=== PATIENT | female | born 1975 | race Caucasian/White ===

== ENCOUNTER 2021-06-06 08:45 | Outpatient (CLI) | payer BC, SELFPAY ==
--- NOTE | 2021-06-06 | DI.RAD_ITS ---
Exam(s) XR CERVICAL SPINE COMP 4-5V EXAM: XR CERVICAL SPINE COMP 4-5V CLINICAL HISTORY: NECK PAIN WITH BL BRACHIAL PARESTHESIA X 2 MOS. TECHNIQUE: 2D digital imaging was performed. COMPARISON: No exams were available for comparison FINDINGS: BONES: No fracture or destructive lesion. Vertebral bodies are unremarkable. Facet degenerative foster ges greatest at C2-3, C6-7 and C7-T1. Mild left-sided neural foraminal narrowing at C5-6. Remaining neural foramen are patent.. DISKS: Mild disc space narrowing at C5-6 with small endplate osteophytes. Minimal endplate osteophyt es at C4-5. ALIGNMENT: Cervical spinal alignment is within normal limits. The odontoid and atlantoaxial articulat ions are normal. SOFT TISSUE: Normal. The lung apices are clear. IMPRESSION: Mild degenerative disc changes and facet degenerative changes. DATA REPOSITORY: RADIATION DOSE DELIVERED:
== END 2021-06-06 09:05 ==
PROVIDERS: PCP Nurse Practitioner; Visit Provider Chiropractor Orthopedic
DX: M47.812 Spondylosis without myelopathy or radiculopathy, cervical region (principal); R20.2 Paresthesia of skin
CPT/HCPCS: 72050

== ENCOUNTER 2021-08-28 01:44 | Outpatient (CLI) | payer BC, SELFPAY ==
--- NOTE | 2021-08-28 | DI.RAD_ITS ---
Exam(s) XR CHEST 2V PA LATERAL EXAM: XR CHEST 2V PA LATERAL CLINICAL HISTORY: PLEURITIC CHEST PAIN, R07.1,VIRAL INFECTION,B34.9 TECHNIQUE: 2D digital imaging was performed. COMPARISON: No exams were available for comparison FINDINGS: The heart is not enlarged. The lungs are clear and well expanded. No pleural effusion seen. Mediastin al contours appear intact. IMPRESSION: Normal chest. RADIATION DOSE DELIVERED: Total DLP
== END 2021-08-28 02:04 ==
PROVIDERS: PCP Nurse Practitioner; Visit Provider Family Medicine
DX: R07.1 Chest pain on breathing (principal); B34.9 Viral infection, unspecified
CPT/HCPCS: 71046

== ENCOUNTER 2021-09-06 09:08 | Emergency (ER) | payer BC, SELFPAY ==
--- NOTE | 2021-09-06 09:00 | RT.EKG_ITS ---
APPROVED REPORT Exam: Resting ECG Reason for Exam: sob Patient Location: E HR:89 bpm ECG Measurements Heart Rate 89 AXIS KS 126 P 64 QRSd 74 QRS 46 QT 346 T 37 QTc 421 Conclusion Sinus rhythm...normal P axis, V-rate 60- 99. Sinus. No STEMI. I have reviewed and interpreted ECG and agree with software generated interpretation.
[2021-09-06 09:13] VITALS: BP 142/105; PULSE 102; RESP 24; TEMP 36.6; O2SAT 100
--- NOTE | 2021-09-06 09:20 | ED.GENADUL_ITS ---
Discharge Plan Disposition Patient Disposition: AGAINST MEDICAL ADVICE Condition: Stable Discharge Details Clinical Impression: Shortness of breath Primary Care Provider: Shanique Westfall ED Provider: Belkys Bailey Home Meds and New Rx's Prescriptions: Continued bupropion HCl 75 MG tablet 75 mg PO BID RF: 0 diclofenac 50 mg PO BID RF: 0 ParaGard T 380A 1 EACH intrauterine device 1 ea Intrauterine ONCE Qty: 1 RF: 0 gabapentin 300 MG capsule 300 mg PO as directed 30 Days Qty: 102 RF: 0 prednisone 10 mg tablet 50 mg PO DAILY RF: 0 citalopram 20 mg tablet 20 mg PO DAILY RF: 0 benzonatate 100 mg capsule 100 mg PO PRN PRNRF: 0 albuterol sulfate 90 mcg/actuation HFA aerosol inhaler 2 inh INHALATION PRN PRNRF: 0 lamotrigine 100 mg tablet 50 mg PO QHS RF: 0 methylphenidate HCl 20 mg capsule, ER biphasic 30-70 20 mg PO DAILY RF: 0 Discharge Data Discharge Date/Time-TO BE ENTERED AT DEPARTURE: 09/06/21 10:15 Medical Decision Making Patient is a 46-year-old female presenting today with chief complaint of chest pain and shortness of breath. States that this began approximately 1 month ago but has had a great increase in the past 30 minutes. Has been having a chronic cough, is currently on steroids. States that she has been coughing frequently for the past month and has been seen by her primary care for this. States that when her symptoms began this morning, she began breathing rapidly and has experienced numbness and tingling in her hands as well as lightheadedness. She denies any history of anxiety. Denies any known cardiac history. Patient states that she is vaccinated against COVID-19. On exam, patient appears mildly anxious. She was having a panic attack, is breathing very rapidly. Coughing frequently with this does not seem like a true cough at this time. She is oxygenating 100%. She is hypertensive and tachycardic but again, appears primarily anxiety driven. Patient is able to speak in full sentences. However, in between this is very tachypneic. We are coaching her to slow down her breathing. Her lungs are clear, I do not appreciate any wheezing, rhonchi or rales. Abdomen is benign. Normal cardiac auscultation. I not appreciate any abnormality in HEENT exam. Patient feels like she is feeling tight in her throat. Can occasionally have a forced wheeze but none in lung mckinney. This subsides when speaking, seems to be reproduced when anxiety increases. No stridor noted. Her exam is most consistent with anxiety at this time. However, as she is SOB and experiencing acute on chronic CP, will evaluate for possible ACS, infectious etiology. She refuses CXR, reports she had one last week. With her tachycardia, considered PE. Will obtain d-dimer. ECG reviewed by Dr. Gold, no acute ischemic changes noted. CXR dated 08/28/21. Impression from radiologist, normal chest. Patient is calming down, breathing is slowing without intervention. Her significant other came to the front desk specialist and is concerned that nobody has been in to see her. Patient has been evaluated by myself as well as nursing staff. Labs are pending. Will reevaluate the patient and discuss where we are. Patient began requesting discharge. She feels that she is back to normal. Regarding her pending labs, however, when I discussed my concerns to her she began having increased anxiety once again. I discussed with her that anxiety can manifest in many ways including the tightness in her throat, chest discomfort, shortness of breath, tingling in her hands. We discussed trying to treat this particularly as she has failed her many outpatient treatment options and she adamantly refuses. Patient is noted to be escalating and becoming more more again. I did try to discuss this with her calmly and she became very upset and appear more anxious once again. I did advise that while my initial impression is that this may be driven by her anxiety today, I do feel that it is worth looking for any type of emergent pathology and that she is leaving prior to completion of this work-up. Patient demonstrates decision making capacity. Patient is leaving AGAINST MEDICAL ADVICE. I let her know that she may return anytime for continued management and work-up. Otherwise, I asked that she f/u with PCP as soon as possible. Patient left prior to receiving her discharge paperwork. Did not want this paperwork. HPI General Mode of arrival: ambulatory . Date/Time Provider Initiated Documentation: 09/06/21 09:10 . Limitations to Documentation: no limitations . Information obtained by: patient and RN notes reviewed . History of Present Illness 46 year old F presents to the emergency department with the chief complaint of shortness of breath, described as severe, Quality is described as constant (for the past 30 minutes), and is localized to the neck (feels tight in her throat) and chest. Patient started experiencing this minute(s) and it has been constant. No relieving factors improve symptom(s), No exacerbating factors reported . Patient notes chest pain, cough and shortness of breath; denies diaphoresis, fever/chills, headaches, loss of appetite, nausea/vomiting and syncope. Patient did receive the following treatments prior to arrival, none Related Data Home Medications Medication Instructions Recorded Confirmed bupropion HCl 75 mg PO BID 03/13/16 01/17/18 Diclofenac 50 mg PO BID 01/27/18 ParaGard T 380A 1 ea INTRAUTERINE ONCE #1 implant 01/27/18 09/06/21 gabapentin 300 mg PO as directed 30 Days #102 01/27/18 cap albuterol sulfate 2 inh INHALATION PRN PRN 09/06/21 09/06/21 benzonatate 100 mg PO PRN PRN 09/06/21 09/06/21 citalopram 20 mg PO DAILY 09/06/21 09/06/21 lamotrigine 50 mg PO QHS 09/06/21 09/06/21 methylphenidate HCl 20 mg PO DAILY 09/06/21 09/06/21 prednisone 50 mg PO DAILY 09/06/21 09/06/21 Previous Rx's Medication Instructions Recorded gabapentin 300 mg PO as directed 30 Days #102 01/27/18 cap Allergies Allergy/AdvReac Type Severity Reaction Status Date / Time codeine Allergy Mild Itching Unverified 09/06/21 09:18 General Stated Complaint: RespSymp ANIRUDH: 3 Review of Systems Constitutional Constitutional: Reports as per HPI, Denies chills, Denies fever(s) and Denies headache(s) ENT Ears, Nose, Mouth, and Throat: Denies dizziness, Denies headache(s) and Reports other (tingling around mouth) Cardiovascular Cardiovascular: Reports as per HPI, Reports chest pain, Reports chest pain at rest, Reports chest pain with activity, Denies syncope, Denies leg edema, Reports lightheadedness, Denies radiating jaw, neck or arm pain, Reports dyspnea and Reports dyspnea on exertion Respiratory Respiratory: Reports as per HPI, Reports cough (x 1 month), Denies pain on inspiration, Denies pain with cough, Reports dyspnea, Reports dyspnea on exertion and Reports wheezing Gastrointestinal Gastrointestinal: Reports as per HPI, Denies abdominal pain, Denies diarrhea, Denies nausea and Denies vomiting Musculoskeletal Musculoskeletal: Reports as per HPI, Denies back pain and Reports tingling (in hands and feet) Integumentary/Breasts Skin/Breast: Reports as per HPI and Denies rash Neurologic Neurologic: Reports as per HPI, Denies dizziness, Denies syncope, Denies headache(s) and Reports tingling (in hands and feet) Allergic/Immunologic Allergic/Immunologic: Reports wheezing PFSH Social History Smoking/Tobacco Use Status: Never Smoking risk assessment performed?: Yes Drug use: Never Details: PT experiencing a severe coughing attack during traige. Unable to obt ain alcohol intake information. Do you feel safe at home: Yes Do you feel safe in your relationship?: Yes Exam Const General: cooperative, well developed, in distress moderate (hyperventilating, appears very anxious) and anxious Nutritional Appearance: average body habitus and well nourished Orientation: alert, awake and oriented x3 HENMT Head: normal to inspection Ears: hearing grossly normal bilaterally Mouth: moist mucous membranes Chest Chest: normal inspection of the chest, normal palpation of entire chest wall and no crepitus Resp Effort & Inspection: normal respiratory effort, able to speak in complete sentences, no respiratory distress and tachypneic Auscultation: clear to auscultation bilaterally, no rales, no rhonchi and no wheezes Cardio Rate: tachycardic Rhythm: regular rhythm Heart Sounds: S1 normal and S2 normal GI Inspection: normal to inspection, no edema and non-distended Palpation: soft, no hepatosplenomegaly, not firm, no guarding, not rigid and nontender Auscultation: normal bowel sounds Back/Spine/Pelvis Thoracic/Lumbar Spine: thoracic and lumbar spine normal to inspection Skin General skin exam: no rashes or lesions noted Trauma: no lacerations or abrasions Neuro General: patient alert, patient awake and patient oriented x3 Cognition: normal cognition Speech: speech normal Gait: normal gait Extrem General: normal to inspection, capillary refill normal, no pedal edema, no calf tenderness and normal gait Psych Appearance: grossly normal and well kempt Mental Status: mental status grossly normal Speech and Movement: speech and movement normal Course Vital Signs Vital signs: Vital Signs Temperature 36.6 C 09/06/21 09:13 Pulse 102 H 09/06/21 09:13 Respiratory Rate 24 09/06/21 09:13 Blood Pressure 142/105 H 09/06/21 09:13 Pulse Oximetry 100 09/06/21 09:13 Temperature 36.6 C 09/06/21 09:13 Pulse 102 H 09/06/21 09:13 Respiratory Rate 24 09/06/21 09:13 Blood Pressure 142/105 H 09/06/21 09:13 Blood Pressure Position Sitting 09/06/21 09:13 Pulse Oximetry 100 09/06/21 09:13 Oxygen Delivery Method Room Air 09/06/21 09:13 Oxygen Flow Rate 0 09/06/21 09:13
[2021-09-06 09:50] LABS: HCT 37.7 % (36.0-46.0); HGB 12.2 g/dL (11.2-15.7); MCH 30.3 pg (27.0-33.0); MCHC 32.4 % (32.0-36.0); MCV 93.5 fL (80-95); MPV 10.6 fL (8.0-11.0); Platelet Count 272 10^3/uL (130-400); RBC 4.03 10^6/uL (3.93-5.22); RDW-SD 44.6 fL; WBC 9.87 10^3/uL (4.4-10.8)
[2021-09-06 10:05] LABS: ALT 28 U/L (14-59); AST 17 U/L (15-37); Albumin 4.2 g/dL (3.4-5.0); Alkaline Phosphatase 64 U/L (46-116); Anion Gap 17.1 mmol/L (3-11); BUN 12 mg/dL (7-18); Bilirubin, Total 0.4 mg/dL (0.2-1.0); CO2 19.9 mmol/L (21.0-32.0); CREATININE 1.1 mg/dL (0.55-1.02); Calcium 8.8 mg/dL (8.5-10.1); Chloride 104 mmol/L (98-107); Estimated GFR 53.96 (mL/min/1.73m2); Glucose 81 mg/dL (74-106); Potassium 3.6 mmol/L (3.5-5.1); Sodium 141 mmol/L (136-145); Total Protein 7.4 g/dL (6.4-8.2); Troponin I < 0.05 ng/mL (<0.06)
[2021-09-06 10:24] LABS: D-Dimer 461 ng/mlFEU (<500)
== END 2021-09-06 10:15 | disposition left against medical advice (07) ==
PROVIDERS: Emergency Provider Physician Assistant; PCP Nurse Practitioner
DX: R06.02 Shortness of breath (principal); R07.9 Chest pain, unspecified; Z53.29 Procedure and treatment not carried out because of patient's decision for other reasons; I10 Essential (primary) hypertension; F41.0 Panic disorder [episodic paroxysmal anxiety]
CPT/HCPCS: 36415; 80053; 85027; 93005; 99283; U0003; 84484; 85379; 93010